=== PATIENT | female | born 1995 | race American Indian/Alaskan Native ===

== ENCOUNTER 2017-07-17 20:40 | Emergency (ER) | payer MEDICAID, OTHER ==
[2017-07-17] MEDS ORDERED: Albuterol 6.7 GM Inhaler INH ONE ×2 (20:41→22:14)
--- NOTE | 2017-07-17 21:47 | EDM.PDOC ---
ED HPI GENERAL MEDICAL PROBLEM - General Chief Complaint: Respiratory Problem Stated Complaint: CONGESTED HARD TO BREATH, O2 LOW, [id number] Time Seen by Provider: 07/17/17 20:50 Source of Information: Reports: Patient History Limitations: Reports: No Limitations - History of Present Illness INITIAL COMMENTS - FREE TEXT/NARRATIVE: c/o cold symptoms with cough and congestion for one week, feel similar to bronchitis. Smsoker. Throat feels scratchy. Chills and sweaty but not taken temp.. Headache Pain Score (Numeric/FACES): 4 - Related Data Allergies Allergy/AdvReac Type Severity Reaction Status Date / Time Penicillins Allergy Hives Verified 07/17/17 20:46 Home Meds: Home Meds . [No Known Home Meds] 06/03/14 [History] Past Medical History - Past Health History Medical/Surgical History: Denies Medical/Surgical History Social & Family History - Family History Family Medical History: Noncontributory - Tobacco Use Smoking Status *Q: Current Some Day Smoker Years of Tobacco use: 4 Packs/Tins Daily: 0.1 Second Hand Smoke Exposure: Yes - Alcohol Use Days Per Week of Alcohol Use: 0 - Recreational Drug Use Recreational Drug Use: No ED ROS GENERAL - Review of Systems Review Of Systems: See Below Constitutional: Reports: Chills HEENT: Reports: Rhinitis, Throat Pain (scratchy) Respiratory: Reports: Cough Cardiovascular: Reports: No Symptoms GI/Abdominal: Reports: Nausea Musculoskeletal: Reports: No Symptoms Skin: Reports: No Symptoms Neurological: Reports: No Symptoms ED EXAM, GENERAL - Physical Exam Exam: See Below Exam Limited By: No Limitations General Appearance: Alert, No Apparent Distress Eye Exam: Bilateral Eye: EOMI Ear Exam: Bilateral Ear: TM normal Nose: Nasal Drainage, Clear Rhinorrhea Throat/Mouth: Normal Inspection Head: Atraumatic, Normocephalic Neck: Normal Inspection. No: Lymphadenopathy (L), Lymphadenopathy (R) Respiratory/Chest: No Respiratory Distress, Lungs Clear Cardiovascular: Normal Peripheral Pulses, Regular Rate, Rhythm GI/Abdominal: Normal Bowel Sounds Extremities: Normal Range of Motion Neurological: Alert, Oriented, Normal Cognition, Normal Gait Skin Exam: Warm, Dry, Intact, Normal Color, No Rash Course - Vital Signs Last Recorded V/S: Last Vital Signs Temp 98.3 F 07/17/17 21:57 Pulse 92 07/17/17 21:57 Resp 16 07/17/17 21:57 BP 143/74 H 07/17/17 21:57 Pulse Ox 99 07/17/17 21:57 - Orders/Labs/Meds Orders: Active Orders 24 hr Category Date Time Status CULTURE STREP A CONFIRMATION [RM] Stat Lab 07/17/17 21:14 Results STREP SCRN A RAPID W CULT CONF [] Stat Lab 07/17/17 21:14 Results Meds: Medications Discontinued Medications Generic Name Dose Route Start Last Admin Trade Name Laurel PRN Reason Stop Dose Admin Albuterol Confirm 07/17/17 22:14 07/17/17 22:31 Proventil Hfa Administered 07/17/17 22:15 Not Given Dose 6.7 gm INH .STK-MED ONE Departure - Departure Time of Disposition: 22:14 Disposition: Home, Self-Care 01 Condition: Good Clinical Impression: URI (upper respiratory infection) Qualifiers: URI type: unspecified viral URI Qualified Code(s): J06.9 - Acute upper respiratory infection, unspecified - Discharge Information Instructions: Upper Respiratory Infection, Adult, [id number] Referrals: PCP,None [Primary Care Provider] - Forms: ED Department Discharge Additional Instructions: OTC cold medication for congestion, runny nose and cough per package instructions increase fluids albuterol inhlaer 2 puffs every 4 hours as needed for coughing Clinic follow up as needed - My Orders Last 24 Hours: My Active Orders 07/17/17 21:14 CULTURE STREP A CONFIRMATION [RM] Stat STREP SCRN A RAPID W CULT CONF [] Stat - Assessment/Plan Last 24 Hours: My Active Orders 07/17/17 21:14 CULTURE STREP A CONFIRMATION [RM] Stat STREP SCRN A RAPID W CULT CONF [] Stat
[2017-07-17 21:57] VITALS: BP 143/74
== END 2017-07-17 22:19 | disposition home or self-care (01) ==
LOC: DL.ED 20:40
DX: J06.9 Acute upper respiratory infection, unspecified (principal); F17.210 Nicotine dependence, cigarettes, uncomplicated; Z88.0 Allergy status to penicillin
CPT/HCPCS: 87081; 87430; 87804; 99283; A9270-GY

== ENCOUNTER 2017-10-29 20:51 | Emergency (ER) | payer OTHER ==
[2017-10-29 21:27] VITALS: BP 128/71
[2017-10-29] MEDS ORDERED: Azithromycin 250 MG Tab PO ONE (21:46)
[2017-10-29] MEDS ORDERED: predniSONE 20 MG Tab PO ONE (21:46)
[2017-10-29] MEDS ORDERED: Codeine/Promethazine 10-6.25 MG/5 ML Syrup 5 ML UD Cup PO ONE (21:46)
--- NOTE | 2017-10-29 21:54 | EDM.PDOC ---
ED HPI GENERAL MEDICAL PROBLEM - General Chief Complaint: ENT Problem Stated Complaint: RESPIRATORY PROBLEM [id number] Time Seen by Provider: 10/29/17 21:48 Source of Information: Reports: Patient History Limitations: Reports: No Limitations - History of Present Illness INITIAL COMMENTS - FREE TEXT/NARRATIVE: c/o few days h/o head congestion with headache coughing all night sore throat. worse tonight unable to work with on-off dizziness like room spinning but ok now. 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 [No Known Home Meds] 06/03/14 [History] Past Medical History - Past Health History Medical/Surgical History: Denies Medical/Surgical History Social & Family History - Family History Family Medical History: Noncontributory - Tobacco Use Smoking Status *Q: Current Some Day Smoker Years of Tobacco use: 4 Packs/Tins Daily: 0.1 Second Hand Smoke Exposure: Yes - Alcohol Use Days Per Week of Alcohol Use: 0 - Recreational Drug Use Recreational Drug Use: No ED ROS ENT - Review of Systems Review Of Systems: ROS reveals no pertinent complaints other than HPI. ED EXAM, ENT - Physical Exam Exam: See Below Exam Limited By: No Limitations General Appearance: Alert, WD/WN, Mild Distress, Other (upset) Eye Exam: Bilateral Eye: PERRL (pupils ER @ 4mm) Ears: Normal External Exam, Normal Canal, Hearing Grossly Normal, TM Dullness Nose: Other (congested) Mouth/Throat: Pharyngeal Erythema, Tonsillar Erythema Head: Atraumatic Neck: Supple, Non-Tender Respiratory/Chest: No Accessory Muscle Use, Rhonchi. No: Decreased Breath Sounds Cardiovascular: Regular Rate, Rhythm GI/Abdominal: Soft, Non-Tender Neurological: Alert, Oriented, Normal Cognition, Normal Gait, No Motor/Sensory Deficits Psychiatric: Tearful Skin: Warm, Dry, Normal Color Lymphatic: No Adenopathy Course - Vital Signs Last Recorded V/S: Last Vital Signs Temp 36.9 C 10/29/17 21:24 Pulse 91 10/29/17 21:24 Resp 16 10/29/17 21:24 BP 128/71 10/29/17 21:24 Pulse Ox 100 10/29/17 21:24 - Orders/Labs/Meds Orders: Active Orders 24 hr Category Date Time Status CULTURE STREP A CONFIRMATION [RM] Stat Lab 10/29/17 21:14 Results STREP SCRN A RAPID W CULT CONF [] Stat Lab 10/29/17 21:14 Results Meds: Medications Discontinued Medications Generic Name Dose Route Start Last Admin Trade Name Laurel PRN Reason Stop Dose Admin Azithromycin 500 mg 10/29/17 21:46 Zithromax PO 10/29/17 21:47 ONETIME ONE Prednisone 20 mg 10/29/17 21:46 Prednisone PO 10/29/17 21:47 ONETIME ONE Promethazine HCl/Codeine 5 ml 10/29/17 21:46 Phenergan With Codeine PO 10/29/17 21:47 ONETIME ONE Departure - Departure Time of Disposition: 21:53 Disposition: Home, Self-Care 01 Condition: Good Clinical Impression: Tonsillitis, Serous labyrinthitis of both ears, Bronchitis - Discharge Information Instructions: Acute Bronchitis, Adult, [id number] Additional Instructions: 1) rest as much as possible 2) don't sleep flat at night 3) drink lots of liquids 4) recheck as needed rx given; z-manfred medrol dospak phenergan codeine syrup - My Orders Last 24 Hours: My Active Orders 10/29/17 21:14 CULTURE STREP A CONFIRMATION [RM] Stat STREP SCRN A RAPID W CULT CONF [] Stat - Assessment/Plan Last 24 Hours: My Active Orders 10/29/17 21:14 CULTURE STREP A CONFIRMATION [RM] Stat STREP SCRN A RAPID W CULT CONF [] Stat
== END 2017-10-29 22:09 | disposition home or self-care (01) ==
LOC: DL.ED 20:51
DX: J40 Bronchitis, not specified as acute or chronic (principal); J03.90 Acute tonsillitis, unspecified; H83.03 Labyrinthitis, bilateral; F17.210 Nicotine dependence, cigarettes, uncomplicated; Z88.0 Allergy status to penicillin
CPT/HCPCS: 87081; 87430; 99283; A9270

== ENCOUNTER 2018-10-29 00:21 | Emergency (ER) | payer OTHER ==
[2018-10-29] MEDS ORDERED: Acetaminophen/HYDROcodone 325-10 MG Tab PO ONE (00:22)
[2018-10-29 00:35] VITALS: BP 138/85
[2018-10-29] MEDS ORDERED: Clindamycin HCl 150 MG Cap PO ONE (01:34)
--- NOTE | 2018-10-29 01:43 | EDM.PDOC ---
ED HPI GENERAL MEDICAL PROBLEM - General Chief Complaint: Lower Extremity Injury/Pain Stated Complaint: INFECTION [id number] Time Seen by Provider: 10/29/18 01:37 Source of Information: Reports: Patient History Limitations: Reports: No Limitations - History of Present Illness INITIAL COMMENTS - FREE TEXT/NARRATIVE: c/o pain and infection right big toe. Right Toe-Hailux Pain Score (Numeric/FACES): 9 - Related Data Allergies Allergy/AdvReac Type Severity Reaction Status Date / Time Penicillins Allergy Hives Verified 10/29/18 00:36 Home Meds: Home Meds Acetaminophen [Tylenol Extra Strength] 500 mg PO ASDIRECTED PRN 02/16/18 [ History] Clarithromycin [Biaxin] 500 mg PO BID 10/29/18 [History] metroNIDAZOLE [Metronidazole] 500 mg PO BID 10/29/18 [History] Past Medical History - Past Health History Medical/Surgical History: Denies Medical/Surgical History HEENT History: Reports: None Cardiovascular History: Reports: None Respiratory History: Reports: Bronchitis, Recurrent Gastrointestinal History: Reports: None Genitourinary History: Reports: None 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 Musculoskeletal History: Reports: None Neurological History: Reports: None Psychiatric History: Reports: None Endocrine/Metabolic History: Reports: Obesity/BMI 30+ Hematologic History: Reports: None Immunologic History: Reports: None Oncologic (Cancer) History: Reports: None Dermatologic History: Reports: None - Infectious Disease History Infectious Disease History: Reports: None - Past Surgical History Head Surgeries/Procedures: Reports: None Social & Family History - Family History Family Medical History: Noncontributory - Tobacco Use Smoking Status *Q: Current Every Day Smoker Years of Tobacco use: 5 Packs/Tins Daily: 2 - Caffeine Use Caffeine Use: Reports: Tea - Recreational Drug Use Recreational Drug Use: No - Living Situation & Occupation Living situation: Reports: with Family Review of Systems - Review of Systems Review Of Systems: ROS reveals no pertinent complaints other than HPI. ED EXAM, GENERAL - Physical Exam Exam: See Below Exam Limited By: No Limitations General Appearance: Alert, WD/WN, Mild Distress, Other (discomfort) Ears: Hearing Grossly Normal Throat/Mouth: Normal Voice, No Airway Compromise Head: Atraumatic Neck: Non-Tender, Full Range of Motion Respiratory/Chest: No Respiratory Distress Cardiovascular: Regular Rate, Rhythm GI/Abdominal: Soft, Non-Tender Extremities: Other (right big toe infection, no lymphangitis, ) Neurological: Alert, Oriented, Normal Cognition, Normal Gait, No Motor/Sensory Deficits Psychiatric: Tearful Skin Exam: Warm, Dry, Normal Color Lymphatic: No Adenopathy Course - Vital Signs Last Recorded V/S: Last Vital Signs Temp 36.2 C 10/29/18 00:24 Pulse 89 10/29/18 00:24 Resp 19 10/29/18 00:24 BP 138/85 10/29/18 00:24 Pulse Ox 96 10/29/18 00:24 - Orders/Labs/Meds Meds: Medications Discontinued Medications Generic Name Dose Route Start Last Admin Trade Name Freq PRN Reason Stop Dose Admin Clindamycin HCl 300 mg 10/29/18 01:34 Cleocin PO 10/29/18 01:35 ONETIME ONE Departure - Departure Time of Disposition: 01:44 Disposition: Home, Self-Care 01 Condition: Good Clinical Impression: Ingrown right big toenail - Discharge Information Instructions: Ingrown Toenail Additional Instructions: 1) keep toe clean dry covered 2) follow up at clinic rx given; clindamycin 300mg qid x 40 vicodin 5/325mg bid prn x 6
[2018-10-29] MEDS ORDERED: Acetaminophen/HYDROcodone 325-10 MG Tab ONE (01:55)
== END 2018-10-29 02:00 | disposition home or self-care (01) ==
LOC: DL.ED 00:21
DX: L60.0 Ingrowing nail (principal); F17.210 Nicotine dependence, cigarettes, uncomplicated; E66.9 Obesity, unspecified; Z88.0 Allergy status to penicillin
CPT/HCPCS: 99283; A9270

== ENCOUNTER 2021-11-23 18:37 | Emergency (ER) | payer MEDICAID ==
[2021-11-23] MEDS ORDERED: Sodium Chloride 0.9% 10 ML Syringe FLUSH PRN (18:46)
[2021-11-23 18:59] VITALS: BP 124/83; PULSE 103
[2021-11-23 19:19] LABS: ANION GAP 15.8 mEq/L (7-13); CHLORIDE,CL 108 mmol/L (98-107); SODIUM,NA 145 mmol/L (136-145)
[2021-11-23 20:32] LABS: AMPHETAMINES,URINE NEGATIVE (NEGATIVE); BARBITURATES,URINE NEGATIVE (NEGATIVE); BENZODIAZEPINE,URINE NEGATIVE (NEGATIVE); MDMA (ECSTASY), URINE NEGATIVE (NEGATIVE); METHADONE,URINE NEGATIVE (NEGATIVE); METHAMPHETAMINES,URINE NEGATIVE (NEGATIVE); OPIATES,URINE NEGATIVE (NEGATIVE); OXYCODONE,URINE NEGATIVE (NEGATIVE); PHENCYCLIDINE,URINE NEGATIVE (NEGATIVE); TCA,URINE NEGATIVE (NEGATIVE)
== END 2021-11-23 22:27 | disposition home or self-care (01) ==
LOC: DL.ED 18:37
DX: F19.90 Other psychoactive substance use, unspecified, uncomplicated (principal); E66.9 Obesity, unspecified; Z68.37 Body mass index [BMI] 37.0-37.9, adult; Z88.0 Allergy status to penicillin
CPT/HCPCS: 36415; 71045; 80053; 80305-QW; 80307; 84484; 85025; 93005; 93010; 99283; 99283-25; J3490

== ENCOUNTER 2024-08-09 19:32 | Emergency (ER) | payer MEDICAID ==
[2024-08-09] MEDS: Dexamethasone 4 MG/ML SDV PO ONE (20:06)
[2024-08-09] MEDS: Albuterol/Ipratropium 3.0-0.5 MG/3 ML Neb Soln NEB ONE (20:06)
[2024-08-09] MEDS: Albuterol 6.7 GM Inhaler INH ONE (20:37)
[2024-08-09] MEDS: Oseltamivir 75 MG Cap PO ONE (20:37)
[2024-08-09 20:45] VITALS: BP 134/89; PULSE 88
== END 2024-08-09 20:42 | disposition home or self-care (01) ==
LOC: DL.ED 19:32
DX: J10.1 Influenza due to other identified influenza virus with other respiratory manifestations (principal); E66.9 Obesity, unspecified; F17.210 Nicotine dependence, cigarettes, uncomplicated; Z68.41 Body mass index [BMI] 40.0-44.9, adult; Z86.16 Personal history of COVID-19; Z88.0 Allergy status to penicillin; Z79.899 Other long term (current) drug therapy
CPT/HCPCS: 71045; 87428; 99283; 99284; A9270; J1100; J7620-GY